=== PATIENT | male | born 1995 | race Caucasian/White ===

== ENCOUNTER 2022-02-22 10:17 | Emergency (ER) | payer SELFPAY ==
[~2022-02-22] VITALS: Ht 165.1 cm; Wt 63.0 kg
[2022-02-22] MEDS ORDERED: KETOROLAC 60MG/2ML VIAL IM ONE (10:45)
[2022-02-22] MEDS ORDERED: HYDROCODONE/ACETAMINOPHEN 5/325MG TABLET PO ONE (12:15)
[2022-02-22 13:28] VITALS: BP 141/85
[2022-02-22] MEDS ORDERED: IBUP-2029 MT (14:36)
[2022-02-22] MEDS ORDERED: HYDR-4001 MT (14:36)
== END 2022-02-22 14:45 | disposition home or self-care (01) ==
LOC: ER 10:17
DX: S62.212A Bennett's fracture, left hand, initial encounter for closed fracture (principal); W22.8XXA Striking against or struck by other objects, initial encounter; Y93.89 Activity, other specified; Y92.488 Other paved roadways as the place of occurrence of the external cause
CPT/HCPCS: 29125; 73130; 96372; 99283; J1885